=== PATIENT | female | born 1995 | race Caucasian/White ===

== ENCOUNTER 2020-04-09 03:31 | Emergency (ER) | payer OTHER ==
[~2020-04-09] VITALS: Ht 162.6 cm; Wt 70.8 kg
[2020-04-09 04:35] LABS: BASOPHIL % 0.3 % (0-2); PLATELET COUNT 255 x10^3mcL (130-400)
[2020-04-09 04:36] LABS: RED CELL DISTRIBUTION WIDTH 16.1 % (11.5-14.5)
[2020-04-09 05:12] LABS: CALCIUM 8.5 mg/dL (8.5-10.1); CARBON DIOXIDE 22.5 mmol/L (21-32); CHLORIDE SERUM 103 mmol/L (98-107); CREATININE SERUM 0.8 mg/dL (0.6-1.0); GFR1 > 60 mL/min; GLUCOSE SERUM 134 mg/dL (74-106); POTASSIUM SERUM 3.6 mmol/L (3.5-5.1); SODIUM SERUM 135 mmol/L (136-145)
[2020-04-09 05:16] LABS: ALKALINE PHOSPHATASE 154 U/L (46-116); ALT/SGPT 360 U/L (14-59); AST/SGOT 525 U/L (15-37); BILIRUBIN TOTAL 0.83 mg/dL (0.20-1.00); LIPASE 151 IU/L (73-393); TOTAL PROTEIN, SERUM 7.2 g/dL (6.4-8.2)
[2020-04-09 06:01] VITALS: BP 116/69
== END 2020-04-09 06:01 | disposition home or self-care (01) ==
LOC: ED 03:31
PROVIDERS: Emergency Medicine
DX: R10.13 Epigastric pain (principal); R07.89 Other chest pain; R06.02 Shortness of breath; R11.0 Nausea
CPT/HCPCS: Q0092